=== PATIENT | female | born 1955 | race African-American/Black ===

== ENCOUNTER 2017-09-20 06:28 | Emergency (ER) | payer OTHER ==
[~2017-09-20] VITALS: Ht 160 cm; Wt 61.2 kg
[2017-09-20] MEDS ORDERED: JANUVIA100 MG PO (06:50)
[2017-09-20] MEDS ORDERED: HYDROCHLOROTH12.5 M1 PO ×2 (06:51→07:13)
[2017-09-20] MEDS ORDERED: MELOXICAM7.5 MG PO ×2 (06:51→07:13)
[2017-09-20] MEDS ORDERED: ATIVAN0.5 MG PO (06:54)
[2017-09-20] MEDS ORDERED: MOBIC7.5 MG PO (06:55)
[2017-09-20] MEDS ORDERED: GLUCOPHAGE1000 MG PO (06:56)
[2017-09-20] MEDS ORDERED: ASPIRIN81 MG PO (06:56)
[2017-09-20] MEDS ORDERED: METFORMIN HCL1000 MG PO (07:13)
[2017-09-20] MEDS ORDERED: TRAZODONE HCL50 MG PO (07:13)
[2017-09-20] MEDS ORDERED: SIMVASTATIN20 MG PO (07:13)
[2017-09-20] MEDS ORDERED: ATIVAN1 MG PO (07:13)
[2017-09-20] MEDS ORDERED: PRINIVIL20 MG PO (07:13)
== END 2017-09-20 07:25 | disposition home or self-care (01) ==
LOC: ED 06:28
DX: Z76.0 Encounter for issue of repeat prescription (principal); E11.9 Type 2 diabetes mellitus without complications; I10 Essential (primary) hypertension; F41.9 Anxiety disorder, unspecified; F17.200 Nicotine dependence, unspecified, uncomplicated; Z79.84 Long term (current) use of oral hypoglycemic drugs; Z79.899 Other long term (current) drug therapy
CPT/HCPCS: 99281